=== PATIENT | female | born 1995 | race Caucasian/White ===

== ENCOUNTER 2020-11-02 19:20 | Observation (INO) | payer SELFPAY ==
[2020-11-02] MEDS ORDERED: IV RINGERS,LACTATED 1000ML 1,000 ML IV PRN (19:30)
[2020-11-02 20:05] LABS: BILIRUBIN,URINE NEGATIVE (NEG); CLARITY,URINE CLEAR; COLOR,URINE YELLOW; NITRITE,URINE NEGATIVE (NEG); PROTEIN,URINE NEGATIVE (NEG-TRACE)
[2020-11-02 20:12] LABS: BACTERIA,URINE FEW /HPF (0-FEW); BARBITURATES NEG (NEG); BENZODIAZEPINES NEG (NEG); CANNABINOIDS NEG (NEG); COCAINE NEG (NEG); METHADONE NEG (NEG); OPIATES NEG (NEG); PHENCYCLIDINE NEG (NEG); RBC,URINE 0 /HPF (0-2)
[2020-11-02 20:15] LABS: AMPHETAMINE/METHAMPHETAMINE NEG (NEG)
== END 2020-11-02 20:44 | disposition home or self-care (01) ==
LOC: 3 SO LND 19:20
PROVIDERS: ADMIT Obstetrics & Gynecology; ATTEND Obstetrics & Gynecology
DX: O62.9 Abnormality of forces of labor, unspecified (principal); O46.92 Antepartum hemorrhage, unspecified, second trimester; Z3A.27 27 weeks gestation of pregnancy; Z79.899 Other long term (current) drug therapy
CPT/HCPCS: 59025; 80307; 81001; 87086; G0378; G0379

== ENCOUNTER 2020-12-10 12:35 | Emergency (ER) | payer MEDICAID ==
[~2020-12-10] VITALS: Ht 165.1 cm; Wt 75.0 kg
[2020-12-10 13:00] VITALS: BP 133/83
--- NOTE | 2020-12-10 13:48 | PHYS DOC ---
Past Medical History Past Medical History: Asthma, Other Additional Past Medical Histor: ADD, SEASONAL ALLERGIES Past Surgical History: Tonsillectomy, Other Additional Past Surgical Histo: WISDOM TEETH Smoking Status: Never Smoker Alcohol Use: None Drug Use: None General Adult EDM: Chief Complaint: EARACHE/EAR PAIN HPI: HPI: Patient is a 25 year old female 1 para 0 currently at 32 weeks presenting to the ED today complaining of bilateral ear pain rated at 7 out of 10 with drainage from the right ear, symptoms began 2 days ago. Patient denies any fever. Denies any abdominal issues. Follows up with [facility] for her . Review of Systems: Review of Systems: Constitutional: Denies fever or chills. [] Eyes: Denies change in visual acuity. [] HENT: Reports bilateral ear pain with right ear drainage. Denies nasal congestion or sore throat. [] Respiratory: Denies cough or shortness of breath. [] Cardiovascular: Denies chest pain or edema. [] GI: Denies abdominal pain, nausea, vomiting, bloody stools or diarrhea. [] : Denies dysuria. [] Musculoskeletal: Denies back pain or joint pain. [] Integument: Denies rash. [] Neurologic: Denies headache, focal weakness or sensory changes. [] ] Psychiatric: Denies depression or anxiety. [] Heart Score: C/O Chest Pain: N/A Risk Factors: Risk Factors: DM, Current or recent (<one month) smoker, HTN, HLP, family history of CAD, obesity. Risk Scores: Score 0 - 3: 2.5% MACE over next 6 weeks - Discharge Home Score 4 - 6: 20.3% MACE over next 6 weeks - Admit for Clinical Observation Score 7 - 10: 72.7% MACE over next 6 weeks - Early Invasive Strategies Allergies: Allergies: Allergies Coded Allergies Type Severity Reaction Last Updated Verified No Known Drug Allergies 06/22/15 No Physical Exam: PE: Constitutional: Well developed, well nourished, no acute distress, non-toxic appearance. [] HENT: Normocephalic, atraumatic, bilateral external ears normal, oropharynx moist, no oral exudates, nose normal. [] Bilateral TM are normal. There is small amount of cerumen in both ears. There is trace exudate in the right ear canal Eyes: PERRLA, EOMI, conjunctiva normal, no discharge. [] Neck: Normal range of motion, no tenderness, supple, no stridor. [] Cardiovascular:Heart rate regular rhythm, no murmur [] Lungs & Thorax: Bilateral breath sounds clear to auscultation [] Abdomen: Bowel sounds normal, soft, no tenderness, no masses, no pulsatile masses. [] Skin: Warm, dry, no erythema, no rash. [] Back: No tenderness, no CVA tenderness. [] Extremities: No tenderness, no cyanosis, no clubbing, ROM intact, no edema. [] Neurologic: Alert and oriented X 3, normal motor function, normal sensory function, no focal deficits noted. [] Psychologic: Affect normal, judgement normal, mood normal. [] Current Patient Data: Vital Signs: Vital Signs Date Time Temp Pulse Resp B/P (MAP) Pulse Ox O2 Delivery O2 Flow Rate FiO2 12/10/20 13:00 98.4 102 17 133/83 (100) 98 Room Air 98.4 EKG: EKG: [] Radiology/Procedures: Radiology/Procedures: [] Course & Med Decision Making: Course & Med Decision Making Pertinent Labs and Imaging studies reviewed. (See chart for details) This is a 25-year-old female patient currently 32 weeks with otitis e xterna and cerumen. Cerumen is not impacted that much. Discharged on Oflaxacin eardrops. Debrox also recommended for cerumen Dragon Disclaimer: Dragon Disclaimer: This electronic medical record was generated, in whole or in part, using a voice recognition dictation system. Departure Departure Impression: Primary Impression: Otitis externa Qualified Codes: H60.391 - Other infective otitis externa, right ear Additional Impression: Cerumen impaction Qualified Codes: H61.23 - Impacted cerumen, bilateral Disposition: 01 HOME / SELF CARE / HOMELESS Condition: STABLE Referrals: LENNY BEAN PA-C (PCP) follow up next week Patient Instructions: Cerumen Impaction, Otitis Externa, [id number] Additional Instructions: Please use the prescribed eardrops as ordered. You can use [id number] Debrox for earwax. You can take Tylenol for pain. Follow-up with your ASSISTANT [employer]IA BUYER and primary care doctor next week Scripts Ofloxacin (OFLOXACIN) 5 Ml Drops 5 DROP RIGHT EAR BID, #5 ML 0 Refills use for 7 days Prov: POP KUMAR APRN 12/10/20 POP KUMAR APRN Dec 10, 2020 13:47
[2020-12-10] MEDS ORDERED: OFLO5DRO7 RIGHT EAR (13:52)
== END 2020-12-10 14:13 | disposition home or self-care (01) ==
LOC: ER 12:35
DX: O26.893 Other specified pregnancy related conditions, third trimester (principal); H60.391 Other infective otitis externa, right ear; H61.23 Impacted cerumen, bilateral; O99.513 Diseases of the respiratory system complicating pregnancy, third trimester; J45.909 Unspecified asthma, uncomplicated; Z3A.32 32 weeks gestation of pregnancy
CPT/HCPCS: 99283

== ENCOUNTER 2020-12-29 19:24 | Observation (INO) | payer OTHER ==
[~2020-12-29] VITALS: Ht 165.1 cm; Wt 79.0 kg
[~2020-12-29 19:24] MED LIST: OFLO5DRO7 RIGHT EAR
[2020-12-29 19:47] VITALS: BP 110/72
[2020-12-29] MEDS ORDERED: 0.9 % SODIUM CHLORIDE 10 ML DISP.SYRIN. IV PRN (20:00)
[2020-12-29] MEDS ORDERED: IV RINGERS,LACTATED 1000ML 1,000 ML IV PRN (20:00)
[2020-12-29 20:16] LABS: BILIRUBIN,URINE NEGATIVE (NEG); CLARITY,URINE CLEAR; COLOR,URINE YELLOW; NITRITE,URINE NEGATIVE (NEG); PH,URINE 6.5 (<5.0-8.0); PROTEIN,URINE NEGATIVE (NEG-TRACE)
[2020-12-29 20:28] LABS: BACTERIA,URINE MODERATE /HPF (0-FEW)
[2020-12-29 20:30] LABS: RBC,URINE 0 /HPF (0-2)
== END 2020-12-29 21:05 | disposition home or self-care (01) ==
LOC: 3 SO LND 19:24
PROVIDERS: ADMIT Obstetrics & Gynecology; ATTEND Obstetrics & Gynecology
DX: O99.891 Other specified diseases and conditions complicating pregnancy (principal); M54.9 Dorsalgia, unspecified; R10.11 Right upper quadrant pain; O99.343 Other mental disorders complicating pregnancy, third trimester; F90.9 Attention-deficit hyperactivity disorder, unspecified type; F41.9 Anxiety disorder, unspecified; Z3A.35 35 weeks gestation of pregnancy
CPT/HCPCS: 59025; 81001; 87086; G0378; G0379

== ENCOUNTER 2021-01-12 20:25 | Observation (INO) | payer OTHER ==
[2021-01-12] MEDS ORDERED: IV RINGERS,LACTATED 1000ML 1,000 ML IV PRN (20:30)
[2021-01-12 21:00] LABS: BILIRUBIN,URINE NEGATIVE (NEG); CLARITY,URINE CLEAR; COLOR,URINE YELLOW; NITRITE,URINE NEGATIVE (NEG); PROTEIN,URINE NEGATIVE (NEG-TRACE)
[2021-01-12 21:05] LABS: AMPHETAMINE/METHAMPHETAMINE NEG (NEG); BARBITURATES NEG (NEG); BENZODIAZEPINES NEG (NEG); CANNABINOIDS NEG (NEG); COCAINE NEG (NEG); METHADONE NEG (NEG); OPIATES NEG (NEG); PHENCYCLIDINE NEG (NEG)
[2021-01-12 21:10] LABS: BACTERIA,URINE MODERATE /HPF (0-FEW); RBC,URINE 0 /HPF (0-2); WBC,URINE 20-40 /HPF (0-4)
== END 2021-01-12 21:35 | disposition home or self-care (01) ==
LOC: 3 SO LND 20:25
PROVIDERS: ADMIT Obstetrics & Gynecology; ATTEND Obstetrics & Gynecology
DX: O9A.213 Injury, poisoning and certain other consequences of external causes complicating pregnancy, third trimester (principal); S93.602A Unspecified sprain of left foot, initial encounter; O36.8130 Decreased fetal movements, third trimester, not applicable or unspecified; Z3A.37 37 weeks gestation of pregnancy; Z79.899 Other long term (current) drug therapy; Z98.890 Other specified postprocedural states; X50.1XXA Overexertion from prolonged static or awkward postures, initial encounter; Y93.01 Activity, walking, marching and hiking; Y92.64 Mine or pit as the place of occurrence of the external cause; Y99.8 Other external cause status
CPT/HCPCS: 59025; 80307; 81001; 87086; G0378; G0379

== ENCOUNTER 2021-01-12 21:38 | Emergency (ER) | payer OTHER ==
[~2021-01-12] VITALS: Ht 167.6 cm; Wt 81.8 kg
[2021-01-12 21:49] VITALS: BP 124/93
[2021-01-12] MEDS ORDERED: ACETAMINOPHEN 500 MG TABLET PO ONE (23:00)
--- NOTE | 2021-01-12 23:14 | PHYS DOC ---
Past Medical History Past Medical History: Asthma, Other Additional Past Medical Histor: ADD, SEASONAL ALLERGIES Past Surgical History: Tonsillectomy, Other Additional Past Surgical Histo: WISDOM TEETH Smoking Status: Never Smoker Alcohol Use: None Drug Use: None General Adult EDM: Chief Complaint: FOOT INJURY PAIN HPI: HPI: Patient is a 25 year old female presents to the emergency department chief complaint left foot pain after rolling it in the gravel while walking at approximately 1530 today. Patient has 38 weeks with a EDC of February 02, 2021. Patient is a , was sent to [facility] labor and delivery immediately for monitoring, heart tones were 130 during monitoring, was released by OB specialist Dr. Ireland to come to the emergency department for evaluation of left foot pain. Patient reports the labor and delivery unit ran her urine, reports a history of group B strep positive and is being monitored by her REVIEW COORDINATOR specialist Dr. Ireland. The patient states that it was swollen, however is no longer swollen, reports the pain of 6 out of 10. Has not taken anything for the pain since noon in which she took 2 tablets of Tylenol. Patient denies any other physical complaints or physical concerns. Review of Systems: Review of Systems: 14 body systems of review of systems have been reviewed. See HPI for pertinent positives and negative responses, otherwise all other systems are negative, nonpertinent or noncontributory. Constitutional: Negative except as outlined in HPI above. Skin: Negative except as outlined in HPI above. Eyes: Negative except as outlined in HPI above. HENT: Negative except as outlined in HPI above. Respiratory: Negative except as outlined in HPI above. Cardiovascular: Negative except as outlined in HPI above. GI: Negative except as outlined in HPI above. : Negative except as outlined in HPI above. Musculoskeletal: Negative except as outlined in HPI above. Integument: Negative except as outlined in HPI above. Neurologic: Negative except as outlined in HPI above. Endocrine: Negative except as outlined in HPI above. Lymphatic: Negative except as outlined in HPI above. Psychiatric: Negative except as outlined in HPI above. Heart Score: C/O Chest Pain: No Risk Factors: Risk Factors: DM, Current or recent (<one month) smoker, HTN, HLP, family histo ry of CAD, obesity. Risk Scores: Score 0 - 3: 2.5% MACE over next 6 weeks - Discharge Home Score 4 - 6: 20.3% MACE over next 6 weeks - Admit for Clinical Observation Score 7 - 10: 72.7% MACE over next 6 weeks - Early Invasive Strategies Current Medications: Current Medications Medications (Trade) Dose Ordered Sig/Jean Start Time Stop Time Status Last Admin Dose Admin Acetaminophen (Tylenol) 1,000 mg 1X ONCE 01/12/21 23:00 01/12/21 23:01 01/12/21 22:58 1,000 MG Allergies: Allergies: Allergies Coded Allergies Type Severity Reaction Last Updated Verified No Known Drug Allergies 06/22/15 No Physical Exam: PE: Constitutional: Well developed, well nourished, no acute distress, non-toxic appearance. 25-year-old female in no apparent distress. HENT: Normocephalic, atraumatic. Eyes: Conjunctiva normal, no discharge. Neck: Normal range of motion, no stridor. Cardiovascular: No cyanosis appreciated, distal cap refill less than 2 seconds. Lungs & Thorax: Patient is in no respiratory distress, no audible adventitious lung sounds appreciated. Abdomen: Nontender, no abnormalities noted. Abdomen round, fundal height 18 cm above umbilicus, notable movement. Skin: Warm, dry, no erythema, no rash. Back: No tenderness, no deformities. Extremities: No tenderness, no cyanosis, no clubbing, ROM intact, no edema. Except for left foot, pain to left arch area along #1 metatarsal. No deformity appreciated, no bruising appreciated, 2+ dorsalis pedis/posterior tibial pulses, no skin discoloration appreciated, no swelling appreciated. No edema appreciated. Full AROM/PROM of ankle and phalangeal joints. Neurologic: Alert and oriented X 3, normal motor function, normal sensory function, no focal deficits noted. Psychologic: Affect normal, judgement normal, mood normal. Current Patient Data: Labs: Current Medications Medications (Trade) Dose Ordered Sig/Jean Route PRN Reason Start Time Stop Time Status Last Admin Dose Admin Acetaminophen (Tylenol) 1,000 mg 1X ONCE PO 01/12/21 23:00 01/12/21 23:01 01/12/21 22:58 1,000 MG Vital Signs: Vital Signs Date Time Temp Pulse Resp B/P (MAP) Pulse Ox O2 Delivery O2 Flow Rate FiO2 01/12/21 21:49 98.6 94 18 124/93 (85) 98 Room Air 98.6 EKG: EKG: [] Radiology/Procedures: Radiology/Procedures: [] Course & Med Decision Making: Course & Med Decision Making Pertinent Labs and Imaging studies reviewed. (See chart for details) 25-year-old female, vital signs reviewed, presents emergency department chief complaint of left foot pain after rolling it while walking on gravel at approximately 1530 today. Patient was immediately sent upstairs from ED triage for monitoring, was seen and released by [employer]ELOPER Dr. Ireland, patient had urine drawn and evaluated by labor and delivery floor, patient was deemed safe for evaluation in ED. Patient's examination consistent with sprain of left foot, discussed with patient risk and benefits of x-rays during , patient has elected to defer x-ray, will place patient in postop shoe, Vega wrap, ice pack, discussed with patient RICE therapy. Use the postop shoe, follow-up for ongoing foot discomfort. Patient gave verbal understanding of discharge home instructions, RICE therapy, postop shoe use, Tylenol for pain, return to ER precautions and concerns. Patient reports she can feel her baby move, has no concerns about her or her baby, states she is thankful and ready to be discharged home. Patient was hemodynamically stable, nontoxic in appearance, and in no apparent distress at discharge, patient was discharged home without incident. Dragon Disclaimer: Draganthony Disclaimer: This electronic medical record was generated, in whole or in part, using a voice recognition dictation system. Departure Departure Impression: Primary Impression: Sprain of left foot Qualified Codes: S93.602A - Unspecified sprain of left foot, initial encounter Disposition: HOME / SELF CARE / HOMELESS Condition: GOOD Referrals: LENNY BEAN PA-C (PCP) Patient Instructions: Elastic Bandage and RICE, Foot Sprain Additional Instructions: You were seen today in the emergency department for pain of your left foot after you rolled it while walking on gravel today. Because you are 38 weeks , you were taken upstairs to labor and delivery to have monitoring prior to being released to the emergency department for evaluation of your left foot. You were released by your primary [employer] Dr. Ireland in which she deemed safe for ED evaluation of left foot pain. We discussed risk and benefits of x- rays, with your physical presentation I believe he has a sprain to your left foot, we are treating this with RICE therapy, rest, ice, compression, elevation, and a postop shoe. Please wear as needed for comfort, follow-up with your primary care soon for reevaluation of ongoing foot pain. You may use [id number] Tylenol for ongoing pain. Please return to the emergency department for worsening symptoms or other concerns. Was a pleasure taking care of you today in the emergency department and I thank you for allowing me to participate in your emergency health care needs. EMERGENCY DEPARTMENT GENERAL DISCHARGE INSTRUCTIONS Thank you for coming to [facility] Emergency Department (ED) today and trusting us with you care. We trust that you had a positive experience in our Emergency Department. If you wish to speak to the department management, you may call the Director at [phone]. YOUR FOLLOW UP INSTRUCTIONS ARE FOLLOWS: 1. Do you have a private Doctor? If you do not have a private doctor, please ask for a resource list of physicians or clinics that may be able to assist you with follow up care. 2. The Emergency Physicain has interpreted your x-rays. The X-Ray specialist will also review them. If there is a change in the findings, you will be notified in 48 hours when at all possible. 3. A lab test or culture has been done, your results will be reviewed and you will be notified if you need a change in treatment. ADDITIONAL INSTRUCTIONS AND INFORMATION: 1. Your care today has been supervised by a physician who is specially trained in emergency care. Many problems require more than one evaluation for a complete diagnosis and treatment. We recommend that you schedule your follow up appointment as recommended to ensure complete treatment of you illness or injury. If you are unable to obtain follow up care and continue to have a problem, or if your condition worsens, we recommend that you return to the ED. 2. We are not able to safely determine your condition over the phone nor are we able to give sound medical advice over the phone. For these safety reasons, if you call for medical advice we will ask you to come to the ED for further evaluation. 3. If you have any questions regarding these discharge instructions please call the ED at [phone]. SAFETY INFORMATION: In the interest of safety, wellness, and injury prevention; we encourage you to wear your sealbelt, if you smoke; quite smoking, and we encourage family to use a protective helmet for bicycling and other sporting events that present an increased risk for head injury. IF YOUR SYMPTOMS WORSEN OR NEW SYMPTOMS DEVELOP, OR YOU HAVE CONCERNS ABOUT YOUR CONDITION; OR IF YOUR CONDITION WORSENS WHILE YOU ARE WAITING FOR YOUR FOLLOW UP APPOINTMENT; EITHER CONTACT YOUR PRIMARY CARE DOCTOR, THE PHYSICIAN WHOSE NAME AND NUMBER YOU WERE GIVEN, OR RETURN TO THE ED IMMEDIATELY. PARVEEN DAVIS APRN Jan 12, 2021 23:14
== END 2021-01-12 23:21 | disposition home or self-care (01) ==
LOC: ER 21:38
DX: O99.891 Other specified diseases and conditions complicating pregnancy (principal); S93.602A Unspecified sprain of left foot, initial encounter; J45.909 Unspecified asthma, uncomplicated; Z3A.38 38 weeks gestation of pregnancy; X50.9XXA Other and unspecified overexertion or strenuous movements or postures, initial encounter; Y93.89 Activity, other specified; Y92.89 Other specified places as the place of occurrence of the external cause; Y99.8 Other external cause status
CPT/HCPCS: 99282

== ENCOUNTER 2021-01-16 19:06 | Observation (INO) | payer OTHER ==
[2021-01-16 19:49] LABS: BILIRUBIN,URINE NEGATIVE (NEG); CLARITY,URINE CLEAR; COLOR,URINE YELLOW; NITRITE,URINE NEGATIVE (NEG); PROTEIN,URINE NEGATIVE (NEG-TRACE)
[2021-01-16 19:52] LABS: AMNIO PT NEGATIVE
[2021-01-16] MEDS ORDERED: IV RINGERS,LACTATED 1000ML 1,000 ML IV PRN (20:00)
[2021-01-16 20:06] LABS: BACTERIA,URINE MANY /HPF (0-FEW)
[2021-01-16 20:07] LABS: RBC,URINE 0 /HPF (0-2)
[2021-01-16 20:08] LABS: WBC,URINE OCC /HPF (0-4)
== END 2021-01-16 20:38 | disposition home or self-care (01) ==
LOC: 3 SO LND 19:06
PROVIDERS: ADMIT Obstetrics & Gynecology; ATTEND Obstetrics & Gynecology
DX: O62.9 Abnormality of forces of labor, unspecified (principal); O42.92 Full-term premature rupture of membranes, unspecified as to length of time between rupture and onset of labor; O26.893 Other specified pregnancy related conditions, third trimester; R51.9 Headache, unspecified; Z3A.38 38 weeks gestation of pregnancy; Z79.899 Other long term (current) drug therapy
CPT/HCPCS: 36415; 59025; 81001; 84112; 87086; G0378; G0379

== ENCOUNTER 2021-01-20 22:03 | Observation (INO) | payer OTHER ==
[2021-01-20] MEDS ORDERED: IV RINGERS,LACTATED 1000ML 1,000 ML IV PRN (22:15)
[2021-01-20 22:37] LABS: BILIRUBIN,URINE NEGATIVE (NEG); CLARITY,URINE CLEAR; COLOR,URINE YELLOW; NITRITE,URINE NEGATIVE (NEG); PH,URINE 6.5 (<5.0-8.0); PROTEIN,URINE NEGATIVE (NEG-TRACE)
[2021-01-20 22:51] LABS: AMORPHOUS SEDIMENT,UR PRESENT /HPF; BACTERIA,URINE MODERATE /HPF (0-FEW); RBC,URINE 0 /HPF (0-2); SPERM,URINE PRESENT /HPF
== END 2021-01-20 23:20 | disposition home or self-care (01) ==
LOC: 3 SO LND 22:03
PROVIDERS: ADMIT Obstetrics & Gynecology; ATTEND Obstetrics & Gynecology
DX: O26.893 Other specified pregnancy related conditions, third trimester (principal); R10.9 Unspecified abdominal pain; O62.9 Abnormality of forces of labor, unspecified; W10.9XXA Fall (on) (from) unspecified stairs and steps, initial encounter; Y93.89 Activity, other specified; Y92.89 Other specified places as the place of occurrence of the external cause; Y99.8 Other external cause status; Z3A.38 38 weeks gestation of pregnancy
CPT/HCPCS: 81001; 87086; G0378; G0379

== ENCOUNTER → 2021-01-25 | Outpatient (CLI) | payer OTHER ==
[2021-01-12 21:49] VITALS: BP 124/93
[~2021-01-25] MED LIST changes: +DOCU-109 PO; +IBUP-1060 PO
== END ==
LOC: LAB 10:30
PROVIDERS: ATTEND Obstetrics & Gynecology
DX: Z01.812 Encounter for preprocedural laboratory examination (principal); Z20.822 Contact with and (suspected) exposure to COVID-19; O80 Encounter for full-term uncomplicated delivery
CPT/HCPCS: U0003; U0005